=== PATIENT | male | born 1985 | race Two or more races ===

== ENCOUNTER 2017-01-25 22:46 | Inpatient (IN) | payer OTHER ==
[~2017-01-25] VITALS: Ht 188 cm; Wt 84.8 kg
[2017-01-26 01:40] VITALS: BP 112/52
[2017-01-26] MEDS ORDERED: Norco 5mg/325mg tab ORAL PRN ×2 (03:00→21:00)
[2017-01-26] MEDS ORDERED: ATORVASTATIN CA40 MG ORAL (03:17)
[2017-01-26] MEDS ORDERED: insulin pump (03:17)
[2017-01-26] MEDS ORDERED: LISINOPRIL10 MG ORAL (03:17)
[2017-01-26 04:30] VITALS: BP 114/53
[2017-01-26 05:11] LABS: BASOPHILS % (AUTO) 0.6 % (0.0-2.0); EOSINOPHILS % (AUTO) 0.1 % (0.0-3.0); LYMPHOCYTES % (AUTO) 9.6 % (20.0-45.0); MEAN CORPUSCULAR HEMOGLOBIN 30.7 PG (27.0-31.0); MEAN CORPUSCULAR HGB CONC 34.2 G/DL (32.0-36.0); MEAN CORPUSCULAR VOLUME 90 FL (80-99); MEAN PLATELET VOLUME 6.5 FL (6.5-10.1); MONOCYTES % (AUTO) 9.1 % (1.0-10.0); NEUTROPHILS % (AUTO) 80.5 % (45.0-75.0); PLATELET COUNT 213 K/UL (150-450); RED BLOOD COUNT 4.47 M/UL (4.70-6.10); RED CELL DISTRIBUTION WIDTH 11.4 % (11.6-14.8); WHITE BLOOD COUNT 15.5 K/UL (4.8-10.8)
[2017-01-26 05:24] LABS: ALANINE AMINOTRANSFERASE 13 U/L (3-41); ALBUMIN/GLOBULIN RATIO 1.6 (1.0-2.7); ANION GAP 12 (5-15); ASPARTATE AMINO TRANSFERASE 16 U/L (5-40); CALCIUM 8.9 mg/dL (8.6-10.2); CARBON DIOXIDE 25 mEQ/L (20-30); CHLORIDE 101 mEQ/L (98-107); CREATININE 1.2 mg/dL (0.7-1.2); GLOMERULAR FILTRATION RATE > 60 mL/min (>60); HEMOLYSIS 4; MAGNESIUM 1.6 mg/dL (1.7-2.5); POTASSIUM 4.5 mEQ/L (3.4-4.9); SODIUM 138 mEQ/L (135-145); TOTAL PROTEIN 6.3 g/dL (6.6-8.7)
[2017-01-26] MEDS: NovoLOG Insulin Flexpen SUBQ SCH ×4 (05:37→20:49)
[2017-01-26 08:00] VITALS: BP 114/52
[2017-01-26] MEDS: Heparin 5000 units/ml inj SUBQ SCH ×3 (08:59→21:38)
[2017-01-26] MEDS ORDERED: Lisinopril 10mg tab ORAL SCH (09:00)
[2017-01-26 09:59] LABS: APPEARANCE,URINE CLEAR; KETONES,URINE 3+ (NEGATIVE); LEUKOCYTE ESTERASE ,URINE NEGATIVE (NEGATIVE); NITRITE,URINE NEGATIVE (NEGATIVE); PH,URINE 5 (4.5-8.0); PROTEIN,URINE NEGATIVE (NEGATIVE); UROBILINOGEN,URINE NORMAL MG/DL (0.0-1.0)
--- NOTE | 2017-01-26 10:31 | Diagnostic Imaging Report ---
Indication: Chest pain Technique: One view of the chest Comparison: none Findings: Lungs and pleural spaces are clear. Heart size is normal. Impression: No acute process
--- NOTE | 2017-01-26 11:38 | Consultation ---
History of Present Illness General Date patient seen: Jan 26, 2017 Chief Complaint: weakness Referring physician: Dr. Talavera Present Illness HPI 31 year old male with hx of DM and inulin pump, presented to [facility] with CC of nausea and vomiting and high BS. He was found to have BS more than 400 and [place] [facility] [place]. Pt has insulin pump that is not functioning. Allergies: Coded Allergies: PROMETHAZINE (Verified Allergy, Unknown, Altered Mental Status, 01/26/17) unarousable Medication History Scheduled Atorvastatin Calcium* (Atorvastatin Calcium*), 40 MG ORAL BEDTIME, (Reported) Lisinopril* (Lisinopril*), 10 MG ORAL DAILY, (Reported) Miscellaneous Medications [insulin pump], (Reported) Patient History Healthcare decision maker Resuscitation status Full Code Advanced Directive on File Past Medical/Surgical History Past Medical/Surgical History: (1) Diabetes mellitus Review of Systems All Other Systems: negative except mentioned in HPI Physical Exam General Appearance: WD/WN, no apparent distress Lines, tubes and drains: peripheral, central line HEENT: normocephalic, atraumatic, anicteric Neck: non-tender, normal alignment Respiratory/Chest: chest wall non-tender, lungs clear Breasts: no masses Cardiovascular/Chest: normal peripheral pulses, normal rate, no JVD Abdomen: normal bowel sounds Genitourinary/Rectal: normal genital exam Extremities: normal range of motion Last 24 Hour Vital Signs Date Time Temp Pulse Resp B/P Pulse Ox O2 Delivery O2 Flow Rate FiO2 01/26/17 09:13 114/52 01/26/17 08:00 97.3 78 20 114/52 98 Room Air 01/26/17 08:00 79 01/26/17 04:30 97.8 83 18 114/53 98 Room Air 01/26/17 03:34 84 01/26/17 01:46 86 01/26/17 01:40 97.7 95 18 112/52 100 Room Air Intake and Output 01/25/17 01/26/17 19:00 07:00 Intake Total 480 ml Output Total 700 ml Balance -220 ml Intake Oral 120 ml IV Total 360 ml Output Urine Total 700 ml Laboratory Tests Test 01/26/17 03:30 01/26/17 07:30 White Blood Count 15.5 K/UL (4.8-10.8) H Red Blood Count 4.47 M/UL (4.70-6.10) L Hemoglobin 13.7 G/DL (14.2-18.0) L Hematocrit 40.2 % (42.0-52.0) L Mean Corpuscular Volume 90 FL (80-99) Mean Corpuscular Hemoglobin 30.7 PG (27.0-31.0) Mean Corpuscular Hemoglobin Concent 34.2 G/DL (32.0-36.0) Red Cell Distribution Width 11.4 % (11.6-14.8) L Platelet Count 213 K/UL (150-450) Mean Platelet Volume 6.5 FL (6.5-10.1) Neutrophils (%) (Auto) 80.5 % (45.0-75.0) H Lymphocytes (%) (Auto) 9.6 % (20.0-45.0) L Monocytes (%) (Auto) 9.1 % (1.0-10.0) Eosinophils (%) (Auto) 0.1 % (0.0-3.0) Basophils (%) (Auto) 0.6 % (0.0-2.0) Sodium Level 138 mEQ/L (135-145) Potassium Level 4.5 mEQ/L (3.4-4.9) Chloride Level 101 mEQ/L (98-107) Carbon Dioxide Level 25 mEQ/L (20-30) Anion Gap 12 (5-15) Blood Urea Nitrogen 16 mg/dL (7-23) Creatinine 1.2 mg/dL (0.7-1.2) Estimat Glomerular Filtration Rate > 60 mL/min (>60) Glucose Level 194 mg/dL (74-106) H Hemoglobin A1c 9.4 % (< 6.0) H Calcium Level 8.9 mg/dL (8.6-10.2) Phosphorus Level 4.6 mg/dL (2.5-4.8) Magnesium Level 1.6 mg/dL (1.7-2.5) L Total Bilirubin 0.9 mg/dL (0.0-1.2) Aspartate Amino Transf (AST/SGOT) 16 U/L (5-40) Alanine Aminotransferase (ALT/SGPT) 13 U/L (3-41) Alkaline Phosphatase 58 U/L (40-129) Total Protein 6.3 g/dL (6.6-8.7) L Albumin 3.9 g/dL (3.5-5.2) Globulin 2.4 g/dL Albumin/Globulin Ratio 1.6 (1.0-2.7) Urine Color Pale yellow Urine Appearance Clear Urine pH 5 (4.5-8.0) Urine Specific [place] 1.020 (1.005-1.035) Urine Protein Negative (NEGATIVE) Urine Glucose (UA) 4+ (NEGATIVE) H Urine Ketones 3+ (NEGATIVE) H Urine Occult Blood Negative (NEGATIVE) Urine Nitrite Negative (NEGATIVE) Urine Bilirubin Negative (NEGATIVE) Urine Urobilinogen Normal MG/DL (0.0-1.0) Urine Leukocyte Esterase Negative (NEGATIVE) Height (Feet): 6 Height (Inches): 2.00 Weight (Pounds): 187 Medications Current Medications Medications (Trade) Dose Ordered Sig/Enrique Route PRN Reason Start Time Stop Time Status Last Admin Dose Admin Acetaminophen (Tylenol) 650 mg Q6H PRN ORAL Mild Pain/Temp > 100.5 01/26/17 03:00 02/25/17 02:59 Acetaminophen/ Hydrocodone Bitart ([place] 5/325) 1 tab Q6H PRN ORAL Severe Pain (Pain Scale 7-10) 01/26/17 03:00 02/02/17 02:59 Atorvastatin Calcium (Lipitor) 40 mg BEDTIME ORAL 01/26/17 21:00 02/25/17 20:59 Dextrose (Dextrose 50%) STAT PRN IV Hypoglycemia 01/26/17 03:00 02/25/17 02:59 Heparin Sodium (Porcine) (Heparin 5000 units/ml) 5,000 units EVERY 8 HOURS SUBQ 01/26/17 08:00 02/25/17 07:59 01/26/17 08:59 Insulin Aspart (NovoLOG) EVERY 4 HOURS SUBQ 01/26/17 05:00 02/25/17 04:59 01/26/17 09:00 Lisinopril (Zestril) 10 mg DAILY ORAL 01/26/17 09:00 02/25/17 08:59 01/26/17 09:13 Ondansetron HCl (Zofran) 4 mg Q4H PRN IVP Nausea & Vomiting 01/26/17 03:00 02/25/17 02:59 Sodium Chloride (Sodium Chloride 1000ml bag) 1,000 ml @ 100 mls/hr Q10H IVLG 01/26/17 03:00 02/25/17 02:59 01/26/17 03:24 Assessment/Plan Problem List: (1) Uncontrolled diabetes mellitus ICD Codes: E11.65 - Type 2 diabetes mellitus with hyperglycemia SNOMED: 69319299, [id number] Assessment/Plan iv fluid start long acting insuline accucheck and coverage endo to see. check electrolytes dvt prophylaxis CHELSY CEDEÑO Jan 26, 2017 11:38
[2017-01-26 12:00] VITALS: BP 140/86
[2017-01-26] MEDS ORDERED: Levemir Flexpen SUBQ SCH (12:00)
[2017-01-26 16:00] VITALS: BP 115/70
[2017-01-26] MEDS ORDERED: NovoLOG Insulin Flexpen SUBQ SCH (16:30)
--- NOTE | 2017-01-26 16:49 | History & Physical ---
History and Physical History & Physicial Dictated for Int Med-Dr Romeo no. [id number]. TAHMINA LAYNE Jan 26, 2017 16:49
--- NOTE | 2017-01-26 17:31 | History and Physical Report ---
DATE OF ADMISSION: 01/26/2017 CHIEF COMPLAINT: The patient is a 31-year-old male, who presents with complaint of hyperglycemia. HISTORY OF PRESENT ILLNESS: The patient has a history of type 1 diabetes. The patient is visiting from [place]. The patient thinks that his insulin pump has been malfunctioning. The patient states that on 01/25/2017, he began experienced nausea and vomiting. The patient was unable to tolerate p.o. liquids or solids. The patient took blood sugar at home, registered at 0447 hours. The patient presented to [facility] emergency room. Initial blood sugar at [facility] was 514. The patient is transferred to [facility] for insurance purposes. The patient presents today with chief complaint of hyperglycemia and uncontrolled diabetes type 1. REVIEW OF SYSTEMS: Constitutional: The patient denies weight loss or weight gain. The patient denies fevers or chills. HEENT: The patient denies ear or throat pain. The patient denies headache. Cardiovascular: The patient denies palpitations or chest pain. Chest: The patient denies wheeze or shortness of breath. Abdomen: The patient denies diarrhea or constipation. The patient complains of nausea with vomiting as above. Genitourinary: The patient denies dysuria or increased frequency of urination. Neuromuscular: The patient denies seizures or generalized weakness. PAST MEDICAL HISTORY: Significant for 1. Type 1 diabetes. 2. Hypercholesterolemia. 3. Hypertension. PAST SURGICAL HISTORY: The patient denies. CURRENT MEDICATIONS: 1. Regular insulin pump. 2. Atorvastatin 40 mg one tablet p.o. daily. 3. Lisinopril 10 mg one tablet p.o. daily. 4. Protonix 40 mg p.o. p.r.n. ALLERGIES: To Phenergan. SOCIAL HISTORY: The patient is single, however, has a long-term girlfriend. The patient works as a biomedical specialist. The patient denies tobacco use. The patient has rare alcohol use. FAMILY HISTORY: Negative for diabetes or coronary artery disease. PHYSICAL EXAMINATION: GENERAL: The patient is well-developed and well-nourished male, in no apparent distress. VITAL SIGNS: Temperature 97.8 degrees, respirations 18, pulse 83, and blood pressure 114/53. HEENT: Eyes, pupils are equal and responsive to light and accommodation. Extraocular movements are intact. NECK: Supple. No lymphadenopathy. CHEST: Lungs are clear to auscultation bilaterally without wheezes or rales. CARDIOVASCULAR: Regular rhythm and rate. S1 and S2. No murmurs, rubs, or gallops. ABDOMEN: Soft, nontender, and nondistended. Positive bowel sounds. No evidence of hepatosplenomegaly. Currently, no rebound or guarding noted. EXTREMITIES: Negative for clubbing, cyanosis, or edema. RECTAL: Refused. GENITALIA: Refused. NEUROLOGIC: Cranial nerves II through XII are grossly intact without focal deficits. Motor strength is 5/5 bilaterally. Deep tendon reflexes 2+ plantar. LABORATORY STUDIES: From [place], sodium 133, potassium 5.2, chloride 93, CO2 18, BUN 22, creatinine 1.83, and glucose 512. Urinalysis showed 3+ glucose, pH 7.35, pCO2 34.9, oxygen saturation is 94.4%, bicarbonate 18.7, and base excess -5.6. ASSESSMENT: This is a 31-year-old male, 1. Diabetic ketoacidosis. 2. Type 1 diabetes. 3. Hypertension. 4. Hypercholesterolemia. TREATMENT: 1. Hyperglycemia/type 1 diabetes/diabetic ketoacidosis. Endocrinology consultation with Dr. Sheehan. The patient is currently on a regular insulin sliding scale. We will follow recommendations of Endocrinology. 2. Hypertension. Continue lisinopril . 3. Hypercholesteremia. Continue atorvastatin. Camden Talavera M.D. DR: LOI JOB#: [id number] CC:
[2017-01-26 20:00] VITALS: BP 119/61
[2017-01-26] MEDS: Levemir Flexpen SUBQ SCH (20:48)
[2017-01-27] VITALS: BP 105/49
[2017-01-27 04:00] VITALS: BP 111/52
[2017-01-27] MEDS: NovoLOG Insulin Flexpen SUBQ SCH (05:57)
[2017-01-27] MEDS: Heparin 5000 units/ml inj SUBQ SCH (05:59)
[2017-01-27 07:36] LABS: BASOPHILS % (AUTO) 0.9 % (0.0-2.0); EOSINOPHILS % (AUTO) 3.5 % (0.0-3.0); LYMPHOCYTES % (AUTO) 18.7 % (20.0-45.0); MEAN CORPUSCULAR HEMOGLOBIN 29.6 PG (27.0-31.0); MEAN CORPUSCULAR HGB CONC 32.8 G/DL (32.0-36.0); MEAN CORPUSCULAR VOLUME 90 FL (80-99); MEAN PLATELET VOLUME 6.6 FL (6.5-10.1); MONOCYTES % (AUTO) 6.7 % (1.0-10.0); NEUTROPHILS % (AUTO) 70.2 % (45.0-75.0); PLATELET COUNT 200 K/UL (150-450); RED BLOOD COUNT 4.89 M/UL (4.70-6.10); RED CELL DISTRIBUTION WIDTH 11.7 % (11.6-14.8); WHITE BLOOD COUNT 8.3 K/UL (4.8-10.8)
[2017-01-27 07:55] LABS: ALANINE AMINOTRANSFERASE 12 U/L (3-41); ALBUMIN/GLOBULIN RATIO 1.5 (1.0-2.7); ANION GAP 9 (5-15); ASPARTATE AMINO TRANSFERASE 15 U/L (5-40); CALCIUM 9.1 mg/dL (8.6-10.2); CARBON DIOXIDE 30 mEQ/L (20-30); CHLORIDE 102 mEQ/L (98-107); CHOLESTEROL 147 mg/dL (< 200); CREATININE 1.1 mg/dL (0.7-1.2); GLOMERULAR FILTRATION RATE > 60 mL/min (>60); HEMOLYSIS 14; MAGNESIUM 1.8 mg/dL (1.7-2.5); PHOSPHORUS 4.1 mg/dL (2.5-4.8); POTASSIUM 4.4 mEQ/L (3.4-4.9); SODIUM 141 mEQ/L (135-145); TOTAL PROTEIN 6.5 g/dL (6.6-8.7)
[2017-01-27 08:15] VITALS: BP 136/70
[2017-01-27 08:37] VITALS: BP 136/70
[2017-01-27] MEDS: Levemir Flexpen SUBQ SCH (08:39)
[2017-01-27] MEDS ORDERED: Lisinopril 10mg tab ORAL SCH (09:00)
[2017-01-27] MEDS ORDERED: Tubing IV Secondary IV ONE (12:28)
--- NOTE | 2017-01-28 08:54 | Discharge Summary ---
Discharge Summary Hospital Course Date of Admission Jan 26, 2017 at 01:28 Date of Discharge Jan 27, 2017 at 12:29 Admitting Diagnosis HPI Nick Sinclair is a 31 year old male who was admitted on Jan 26, 2017 at 01:28 for Hyperglycemia Hospital Course dc summary #[id number] Discharge Medications Continued Medications: Atorvastatin Calcium* (Atorvastatin Calcium*) 40 Mg Tablet 40 MG ORAL BEDTIME, TAB Lisinopril* (Lisinopril*) 10 Mg Tablet 10 MG ORAL DAILY, TAB [insulin pump] () Discharge Condition Upon Discharge: stable Discharge Disposition Patient was discharged to Home (01) Discharge Diagnoses: Discharge Instructions Discharge Instructions Special Instructions I have been assigned to complete a D/C Summary on this account. I was not involved in the patient management Stacy Jane NP (Vanchtein) Jan 28, 2017 08:54
--- NOTE | 2017-01-29 03:00 | Discharge Summary 2 SIG ---
DATE OF ADMISSION: 01/26/2017 DATE OF DISCHARGE: 01/27/2017 . REASON FOR ADMISSION: 31 years old male with past medical history significant for diabetes mellitus Type 1, hypertension, hypercholesteremia, initially presented to [facility] with abdominal cramping, nausea and vomiting. The patient with an insulin pump for two years. According to the patient, pump battery stopped working and he was unable to exchange it. He was able to use a basal insulin, but was not able to bolus himself . He took a flight from [place] to [place] earlier on the day of the presentation to [place] and was able to exchange the battery when he arrived. The patient stated that the pump now allowing him to bolus, however, the blood sugar was over 500. The patient was unable to bolus himself based on the glucometer safety features intrinsic to the pump. In the emergency department in [place], the patient was diagnosed with diabetic ketoacidosis, given IV fluids along with the insulin drip. At that time, anion gap - 22, CO2- 18, potassium -5.2, ketones +2 in the urine. The patient stabilized and transferred to [facility] for further management. ADMITTING DIAGNOSES: 1. Diabetic ketoacidosis. 2. Diabetes mellitus type 1, out of control. 3. Hypertension. 4. Hypercholesterolemia. HOSPITAL COURSE: The patient was admitted. Endocrinology consult was requested. Laboratory workup on admission revealed that anion gap was closed, with normal value- 12, bicarbonate - 25, and hemoglobin A1c -9.4. Apparently, the patient blood sugar not under control with current insulin pump. The patient needs further optimization of blood sugar management. Blood pressure was managed with KODAK inhibitor. Statin was continued. DVT prophylaxis provided. Blood sugar was managed with sliding scale of insulin, not an insulin pump, and blood sugar was stabilized. After blood sugar stabilized, the patient wanted to go home. He did not want to wait for the violin mechanic and stated that he will follow up as outpatient with Endocrinology. Diabetic ketoacidosis resolved, blood sugar stable. Due to the rapid and unexpected improvement in the patient's condition, the patient was discharged in one day. DISCHARGE DIAGNOSES: 1. Diabetic ketoacidosis. 2. Diabetes mellitus, type 1 out of control. 3. Hypertension. 4. Hypercholesterolemia. DISCHARGE MEDICATIONS: See medication reconciliation list. DISCHARGE INSTRUCTIONS: The patient was discharged home. Follow up with priamry medical doctor or Sharepoint Architect as outpatient. Rajesh Romeo M.D. I have been assigned to dictate discharge summary on this account and I was not involved in the patient's management. Stacy Jane N.P. (Vanchtein) DR: LI JOB#: [id number] CC: KRISTIE
== END 2017-01-27 12:29 | disposition home or self-care (01) | DRG 639 ==
LOC: 2W 01-26 01:28 → 3E 01-26 14:59
DX: E10.65 Type 1 diabetes mellitus with hyperglycemia (principal); I10 Essential (primary) hypertension; E78.00 Pure hypercholesterolemia, unspecified; Z79.4 Long term (current) use of insulin; Z88.8 Allergy status to other drugs, medicaments and biological substances
CPT/HCPCS: 36415; 71010; 80053; 81003; 82465; 82962; 83036; 83735; 84100; 84443; 85025; 85610; 85651; 85730; 87081; J1815; S5561